=== PATIENT | female | born 2000 | race Two or more races ===

== ENCOUNTER 2025-05-30 04:55 | Observation (INO) | payer MEDICAID, SELFPAY ==
[2025-05-30] VITALS (10 sets, daily range): BP systolic 114–137; BP diastolic 70–91; PULSE 88–116; RESP 16–98; TEMP 36.9; O2SAT 97–100; BMI 29.7
== END 2025-05-30 08:00 | disposition home or self-care (01) ==
PROVIDERS: Admitting Provider Obstetrics & Gynecology; Visit Provider Obstetrics & Gynecology
DX: O47.9 False labor, unspecified (principal); O36.8190 Decreased fetal movements, unspecified trimester, not applicable or unspecified; Z3A.00 Weeks of gestation of pregnancy not specified
CPT/HCPCS: 59025; 59899

== ENCOUNTER 2025-05-30 16:38 | Inpatient (IN) | payer MEDICAID, SELFPAY ==
[2025-05-30] VITALS (44 sets, daily range): BP systolic 132–162; BP diastolic 77–104; PULSE 104–144; RESP 18–100; TEMP 36.9–37; O2SAT 92–100; BMI 29.6
[2025-05-30] MEDS: RINGERS LACTATED 1000 ML 1,000 ML 999 ML IV (22:15)
[2025-05-30 22:39] LABS: Basophils # (Auto) 0.1 Thou/mm3 (0.0-0.2); Basophils % (Auto) 0 % (0-2.5); Eosinophils # (Auto) 0.0 Thou/mm3 (0.0-0.5); Eosinophils % (Auto) 0 % (0-10); Hematocrit 33.2 % (36.0-46.0); Hemoglobin 10.7 g/dL (12.0-16.0); Immature Granulocytes Auto 0.21 Thou/mm3 (0.00-0.00); Lymphocytes # (Auto) 3.0 Thou/mm3 (1.0-4.8); Lymphocytes % (Auto) 14 % (10-50); Mean Corpuscular HGB Conc 32.2 g/dl (31.0-37.0); Mean Corpuscular Hemoglobin 25.8 pg (25.0-35.0); Mean Corpuscular Volume 80 fL (80-100); Monocytes # (Auto) 0.9 Thou/mm3 (0.0-0.8); Monocytes % (Auto) 4 % (0-12); Neutrophils # (Auto) 16.5 Thou/mm3 (1.8-7.7); Neutrophils % (Auto) 80 % (37-80); Nucleated Red Blood Cell # 0.00 Thou/mm3 (0.00-0.00); Nucleated Red Blood Cell % 0 /100 WBC (0); Platelet Count 301 Thou/mm3 (140-440); RDW Standard Deviation 44.5 fL (36.4-46.3); Red Blood Count 4.15 Miln/mm3 (4.00-5.20); White Blood Count 20.7 Thou/mm3 (3.6-11.0)
[2025-05-30 23:22] LABS: Syphilis Nonreactive (Nonreactive)
[2025-05-31] VITALS (199 sets, daily range): BP systolic 90–170; BP diastolic 49–85; PULSE 89–177; RESP 16–20; TEMP 36.7–38.2; O2SAT 82–100
--- NOTE | 2025-05-31 01:01 | PD.LDHP ---
Documentation for date of: 05/31/25 OB Labor/Induct. HPI History of Present Illness Chief complaint: contractions : 1 Para: 0 Term pregnancies: 0 pregnancies: 0 Living children: 0 History of Abortions: Spontaneous and Elective: 0 History of Vaginal deliveries: 0 History of sections: No History of : No GAVIN: 06/07/25 Gestational Age (weeks): 39 Gestational Age (days): 1 History of present illness: Patient presents for regular, painful ctx. No LOF. No vaginal bleeding. Normal movement. No fevers/chills. History of Present Dating criteria: LMP confirmed by 2nd trimester US Adequate Care: Yes Ultrasounds: normal mid trimester US Narrative: GERD e-coli bacteruria early , treated Labs Maternal Blood Type: A Pos Labs: Positive: Rubella Titre, Negative: RPR, Hepatitis B, HIV and Group Beta Strep and Unknown: Chlamydia, Gonorrhea, Herpes Type 1, Herpes Type 2 and Covid-19 Narrative: 1hr glucola 109 NIPT negative Review of Systems Review of Systems Narrative Review of Systems: Review of Systems Systems Reviewed: All systems reviewed, normal except as documented Constitutional Constitutional: Denies body ache(s), Denies chills, Denies fever(s) and Denies headache(s) ENT Ears, Nose, Mouth, and Throat: Denies headache(s) and Denies vertigo Cardiovascular Cardiovascular: Denies chest pain, Denies palpitations, Denies dyspnea and Denies syncope Respiratory Respiratory: Denies cough, Denies dyspnea Gastrointestinal Gastrointestinal: Denies nausea and Denies vomiting Neurologic Neurologic: Denies convulsions, Denies headache(s), Denies other visual disturbances, Denies syncope and Denies vertigo Past Medical History Family History OTHER FAMILY HX: non-contributory Surgical History SURGICAL: Negative Section Social History SOCIAL: No ETOH/illicit drug use/tobacco Past Medical History Comments PMH COMMENT: Benign Meds Home Medications and Allergies Home Medications ?Medication ?Instructions ?Recorded ?Confirmed ?Type omeprazole magnesium 20 mg 20 mg PO QDAY 05/30/25 05/30/25 History tablet,delayed release (Prilosec OTC) vitamin no.45-iron-FA 28 1 tab PO QDAY 05/30/25 05/30/25 History mg iron-1 mg chewable tablet Allergies Allergy/AdvReac Type Severity Reaction Status Date / Time No Known Allergies Allergy Verified 05/30/25 22:27 OB Exam Physical Exam Vital signs: Temp Pulse Resp BP Pulse Ox O2 Del Method 98.6 F 131 H 18 110/55 L 100 Room Air 05/30/25 22:41 05/31/25 00:48 05/30/25 22:41 05/31/25 00:48 05/31/25 00:58 05/30/25 22:41 Narrative: General: well developed, well nourished, no acute distress, conversant Cardiac: normal heart rate Lungs: breathing without distress Abdomen: soft, gravid, non-tender, no rebound or guarding Extremities: no pain with palpation of calves Detailed Labor and Delivery Exam Dilation (cm): 4 Effacement (%): 90 Cervix position: anterior station: -3 Consistency: soft Presentation: Vertex Membranes: intact Baseline heart rate: 130 monitor accelerations: 15x15 monitor decelerations: None computer terminal operator variability: Moderate (11-25) Contraction frequency (min): q4 OB Results Labs 06/01/25 07:05 Labs: Short CBC 05/30/25 Range/Units 22:30 WBC 20.7 H (3.6-11.0) Thou/mm3 Hgb 10.7 L (12.0-16.0) g/dL Hct 33.2 L (36.0-46.0) % Plt Count 301 (140-440) Thou/mm3 OB Assessment & Plan Assessment and Plan (1) Active labor at term: Status: Acute Assessment and plan: Beulah is a 25yo with SIUP at 39w0d presenting in active labor. Regular/painful contractions, SCE: 4/90/-3. Vitals wnl, benign exam. Reassuring assessment. PMhx/ significant for: -PNC with Dr. Diaz at [facility] -GERD -e-coli bacteruria early , treated Plan: -Admit to L&D -Establish IV, routine labs -CEFM -Clear liquid diet -Wash House Supervisor/consent re: -GBS status: negative -Anticipate -Safe to proceed (2) 39 weeks gestation of : Status: Acute
[2025-05-31] MEDS: TERBUTALINE SULF INJ 1 MG/ML VIAL 0.25 MG SC (01:28)
--- NOTE | 2025-05-31 03:28 | PD.LDPN ---
Documentation for date of: 05/31/25 OB Labor Progress Note Pelvic Exam Dilation (cm): 6 Effacement (%): 90 station: -2 Amniotic membrane status: Intact Contractions Monitor mode: External Contraction frequency: q4 Contraction intensity: Moderate Status status: Category l Assessment and Plan Comments: Patient had a run of late FHR decels just before I went back to OR with another patient, so terbutaline was given to temporarily stop ctx. This was effective. FHRT corrected to Cat I. Continue expectant management. Will AROM when appropriate.
--- NOTE | 2025-05-31 03:35 | PD.LDPN ---
Documentation for date of: 05/31/25 OB Labor Progress Note Pelvic Exam Dilation (cm): 6 Effacement (%): 90 station: -2 Amniotic membrane status: Intact Contractions Monitor mode: External Contraction frequency: q4 Contraction intensity: Moderate Status status: Category l Assessment and Plan Comments: Intrapartum Note Patient comfortable with epidural now. Normotensive, mild tachycardia, afebrile Cat I FHRT Ctx q5min SCE: 6/90/-2, AROM performed with light meconium noted Will continue expectant management CEFM Will continue to closely monitor Safe to proceed Jacquelyn Nathan MD
[2025-05-31] MEDS: ACETAMINOPHEN IVPB 1,000 MG/100 ML VIAL 250 MG IV (04:40)
--- NOTE | 2025-05-31 05:06 | PD.LDPN ---
Documentation for date of: 05/31/25 OB Labor Progress Note Pelvic Exam Dilation (cm): 6 Effacement (%): 90 station: -2 Amniotic membrane status: Intact Contractions Monitor mode: External Contraction frequency: q4-6 Contraction intensity: Moderate Status status: Category l Assessment and Plan Comments: Notified by RN that patient meets criteria for chorio now with temp 100.6F and maternal tachycardia. On presentation, WBC was 20.7. UA ordered, reflex to Ucx if indicated. She has no URI sx. Ampicillin 2g IV Q6hr and gentamicin 5mg/kg IV Q24hr ordered. Continue to closely monitor Safe to proceed Jacquelyn Nathan MD
[2025-05-31] MEDS: Ampicillin Inj 2,000 MG in SODIUM CHLORIDE 0.9% (POP) 100 ML 200 MG IV ×3 (05:50→17:48)
[2025-05-31 06:04] LABS: Bilirubin,Urine Negative (Negative); Blood,Urine Negative (Negative); Clarity,Urine Clear (Clear/Hazy); Collection Type, Urine Catheter; Color,Urine Colorless (Lt Yel-Yel); Culture Indicated,Urine Not Indicated; Glucose, Urine Negative (Negative); Ketones,Urine 2+ (Negative); Leukocyte Esterase,Urine Negative (Negative); Nitrite,Urine Negative (Negative); PH,Urine 6.0 (5.0-7.0); Protein,Urine Negative (Neg - Trace); RBC,Urine 3 /hpf (0-3); Specific Gravity,Urine 1.006 (1.001-1.035); Squamous Epithelial Cell,Urine 0 /hpf (0-5); Urobilinogen,Urine Negative mg/dL (0.0-1.0); WBC,Urine < 1 /hpf (0-5)
[2025-05-31] MEDS: MINERAL OIL 30 ML UDC TOP (10:26)
[2025-05-31] MEDS: OXYTOCIN in NS 20 units 20 UNIT/1,000 ML BAG 125 UNIT IV (10:30)
[2025-05-31] MEDS: LIDOCAINE HCL 1% 20 ML VIAL INFL (10:34)
[2025-05-31] MEDS: BENZO/LANO/ALOE (Dermoplast) 60 GM CAN 1 SPRAY TOP (10:42)
[2025-05-31 10:50] LABS: Chlamydia trachomatis PCR Negative (Not Detect); Neisseria Gonorrhoeae DNA PCR Negative (Not Detect); Trichomonas Negative (Negative)
[2025-05-31] MEDS: METHYLERGONOVINE INJ 0.2 MG/ML VIAL IM (11:00)
--- NOTE | 2025-05-31 11:02 | PD.LDDELS ---
Data ([place]) Data Hx Section: No : 1 Term: 0 : 0 Livin Abortions: Spontaneous & Theraputic: 0 Delivery Data ([place]) Labor Data Initiation of labor: Spontaneous Induction/Augmentation Agent: Artificial ROM ROM date: 05/31/25 ROM time: 03:36 Amniotic membrane rupture type: Artificial Amniotic fluid description: Light Meconium Delivery Data Onset of labor date: 05/30/25 Onset of labor time: 17:50 Complete dilation date: 05/31/25 Complete dilation time: 08:58 [place] delivery date: 05/31/25 [place] delivery time: 10:27 Placenta delivery date: 05/31/25 Placenta delivery time: 10:39 Stage 1 total time: Labor - Stage 1 Duration 15 hours and 8 minutes Delivered by: Venita Delivery nurse: Leland Neworn nurse: Arley Crutching Contractor at delivery: No Support person(s) at delivery: FOB, Maternal grandma of baby, Paternal grandma of baby Delivery Method Presentation: Vertex Anesthesia Type Anesthesia Type: Epidural Placenta Placenta delivery description: Spontaneous Cord blood sent to lab: Yes cord blood collection: Cord Blood Type EBL Estimated blood loss (ml): 150 Umbilical Cord cord description: 3 Vessels Additional Procedures Beulah is a 25yo [id number] s/p uncomplicated at 39&1wk after presenting in active labor, delivering at 1027 on 05/31/2025. On presentation, SCE was 4/90/-3. She progressed without pitocin augmentation to C/C/0 at which point she began pushing. Meconium had been noted at time of AROM. She received an epidural. During labor dx of chorioamnionitis was made based on presenting WBC count 20.7, maternal tachycardia and then eventual development of 100.6F temp. Started on amp/gent. With good maternal pushing efforts, 's head delivered OA and restituted ALICIA. Left anterior shoulder delivered easily followed by posterior shoulder and corpus. Infant had spontaneous cry and was vigorous. Apgars 8/9. placed on maternal abdomen where nose/mouth were suctioned and dried/stimulated. After approximately 3 minutes, cord was clamped x2 and cut by FOB. Cord blood collected for typing. With fundal massage and cord traction, placenta delivered spontaneously and intact with 3 vessel centrally inserted cord. Bimanual massage performed and IV pitocin given per protocol with fundus then firm at u-2cm and hemostasis noted. Inspection of perineum and vagina revealed bilateral labial lacerations and a 1st degree midline perineal laceration which were repaired in routine fashion with 4-0 and 3-0 vicryl, respectively, after anesthetizing with 1% lidocaine- total reapproximation and hemostasis achieved. Small trickle of blood, so sweep just within cervix/JOSELINE performed which retrieved a small amount of clot. 0.2mg IM methergine given with observed hemostasis after. All counts correct x2. Mom and were doing well when I left the room. Jacquelyn Nathan MD Complications Complications: chorioamnionitis [place] Data (Hill) [place] Data order: 1 [place]'s gender: Male Identification band number: [id number] weight (gms): 3210 g Weight (pounds): 7 lbs and 1.2 ozs [place] length: 53 cm 1 minute: 8 5 minutes: 9
[2025-05-31] MEDS: IBUPROFEN TAB 400 MG TABLET 800 MG PO (12:03)
[2025-05-31 16:54] LABS: Basophils # (Auto) 0.1 Thou/mm3 (0.0-0.2); Basophils % (Auto) 0 % (0-2.5); Eosinophils # (Auto) 0.0 Thou/mm3 (0.0-0.5); Eosinophils % (Auto) 0 % (0-10); Hematocrit 31.2 % (36.0-46.0); Hemoglobin 10.2 g/dL (12.0-16.0); Immature Granulocytes Auto 0.62 Thou/mm3 (0.00-0.00); Lymphocytes # (Auto) 2.2 Thou/mm3 (1.0-4.8); Lymphocytes % (Auto) 8 % (10-50); Mean Corpuscular HGB Conc 32.7 g/dl (31.0-37.0); Mean Corpuscular Hemoglobin 25.8 pg (25.0-35.0); Mean Corpuscular Volume 79 fL (80-100); Monocytes # (Auto) 1.6 Thou/mm3 (0.0-0.8); Monocytes % (Auto) 5 % (0-12); Neutrophils # (Auto) 25.0 Thou/mm3 (1.8-7.7); Neutrophils % (Auto) 85 % (37-80); Nucleated Red Blood Cell # 0.02 Thou/mm3 (0.00-0.00); Nucleated Red Blood Cell % 0 /100 WBC (0); Platelet Count 285 Thou/mm3 (140-440); RDW Standard Deviation 44.4 fL (36.4-46.3); Red Blood Count 3.95 Miln/mm3 (4.00-5.20); White Blood Count 29.5 Thou/mm3 (3.6-11.0)
[2025-05-31] MEDS: DOCUSATE SOD 100 MG CAPSULE PO (21:07)
[2025-06-01 00:10] VITALS: BP 110/71; PULSE 92; RESP 16; TEMP 36.8; O2SAT 98
[2025-06-01] MEDS: Ampicillin Inj 2,000 MG in SODIUM CHLORIDE 0.9% (POP) 100 ML 200 MG IV ×2 (00:16→05:54)
[2025-06-01 04:02] VITALS: BP 113/66; PULSE 91; RESP 18; TEMP 36.6; O2SAT 97
[2025-06-01 07:50] LABS: Basophils # (Auto) 0.1 Thou/mm3 (0.0-0.2); Basophils % (Auto) 0 % (0-2.5); Eosinophils # (Auto) 0.1 Thou/mm3 (0.0-0.5); Eosinophils % (Auto) 1 % (0-10); Hematocrit 26.2 % (36.0-46.0); Immature Granulocytes Auto 0.24 Thou/mm3 (0.00-0.00); Lymphocytes # (Auto) 4.1 Thou/mm3 (1.0-4.8); Lymphocytes % (Auto) 19 % (10-50); Mean Corpuscular HGB Conc 32.4 g/dl (31.0-37.0); Mean Corpuscular Hemoglobin 26.0 pg (25.0-35.0); Mean Corpuscular Volume 80 fL (80-100); Monocytes # (Auto) 1.3 Thou/mm3 (0.0-0.8); Monocytes % (Auto) 6 % (0-12); Neutrophils # (Auto) 15.4 Thou/mm3 (1.8-7.7); Neutrophils % (Auto) 73 % (37-80); Nucleated Red Blood Cell # 0.00 Thou/mm3 (0.00-0.00); Nucleated Red Blood Cell % 0 /100 WBC (0); Platelet Count 248 Thou/mm3 (140-440); RDW Standard Deviation 45.6 fL (36.4-46.3); Red Blood Count 3.27 Miln/mm3 (4.00-5.20); White Blood Count 21.3 Thou/mm3 (3.6-11.0)
[2025-06-01 07:57] VITALS: BP 114/70; PULSE 93; RESP 16; TEMP 36.8; O2SAT 98
[2025-06-01 08:01] LABS: Hemoglobin 8.5 g/dL (12.0-16.0)
--- NOTE | 2025-06-01 08:08 | ESDS_ITS ---
DS: Providers Provider Date of admission: 05/30/25 21:38 Primary care physician: Donnie Medina MD Admitting Provider: Jacquelyn Nathan MD Attending Provider on Admission: Jacquelyn Nathan MD Consults: 05/31/25 10:59 Referral Routine Comment: Attending Provider on DC: Jacquelyn Nathan MD Discharging Provider: Jacquelyn Nathan MD DS: Diagnosis Discharge Diagnosis (1) care and examination: Status: Acute (2) Chorioamnionitis, delivered, current hospitalization: Status: Acute (3) Vaginal delivery: Status: Acute (4) anemia: Status: Acute (5) Active labor at term: Status: Acute (6) 39 weeks gestation of : Status: Acute Problem List Completed Was Problem List Reviewed/Reconciled?: Yes Summary/Hosp Course Brief History: Patient presents for regular, painful ctx. No LOF. No vaginal bleeding. Normal movement. No fevers/chills. Beulah is a 25yo [id number] s/p uncomplicated at 39&1wk after presenting in active labor, delivering at 1027 on 05/31/2025. At time of presentation she had incidental elevated WBC count 20.7. She developed chorioamnionitis in labor which was treated with IV amp/gent x24hr after delivery. WBC count elevated to 29.5 and then came down to 21.3. She has no further subjective fevers/chills. Last elevated temp 100.8F at 0430 on 05/31 (>24hr ago). She has otherwise had an uncomplicated course, meeting all milestones and feels ready for discharge home. She is ambulating without lightheadedness, tolerating regular diet no n/v, spontaneously voiding without issue. She has no chest pain or shortness of breath. Minimal, appropriate discomfort. Vitals normal, benign exam. Hemodynamically stable with no evidence of infection. PP Hgb 8.5 from 10.7. No sx of anemia. Rx iron for anemia. Status at Discharge Functional status at discharge: independent ambulation Overall status at discharge: patient is back to baseline Time Spent with Patient Time attestation: Total time spent providing and/or coordinating discharge services: Exam Vital Signs Temp Pulse Resp BP Pulse Ox O2 Del Method 98.3 F 93 16 114/70 98 Room Air 06/01/25 07:57 06/01/25 07:57 06/01/25 07:57 06/01/25 07:57 06/01/25 07:57 06/01/25 07:57 Narrative Exam General: well developed, well nourished, no acute distress, conversant Cardiac: normal heart rate Lungs: breathing without distress Abdomen: soft, post-gravid, non-tender, no rebound or guarding, Fundus firm at u-3cm. Extremities: no pain with palpation of calves, trace edema of BLE Discharge Plan Plan Patient Disposition: HOME (Self Care) Patient condition on transfer: Stable Prescriptions/Referrals Prescriptions/Med Rec: New docusate sodium 100 mg Capsule 100 mg PO BID 10 Days Qty: 20 0RF ibuprofen 800 mg tablet 800 mg PO Q8H PRN (Reason: See Comments) 10 Days Qty: 20 0RF ferrous sulfate 325 mg (65 mg iron) tablet 325 mg PO QDAY Qty: 30 0RF No Action vitamin #45-iron-FA 28 mg iron- 1 mg tablet,chewable 1 tab PO QDAY omeprazole magnesium [Prilosec OTC] 20 mg tablet,delayed release (DR/EC) 20 mg PO QDAY Referrals: Donnie Medina MD [Primary Care Provider] - Patient/Caregiver Discharge Instructions Discharge Activity: activity as tolerated and other Other Discharge Activity Instructions:: vaginal rest and no heavy lifting more than 10 pounds for 6 weeks Other Discharge Diet Instructions: regular diet Education Materials: After a Vaginal Print Language: Swedish Activity Restrictions/Additional Instructions: follow up with Dr. Diaz in 2 to 4 weeks, call his office to schedule visit Stand Alone Forms: Gl[employer]y Award Info., Patient Portal Info Letter Discharge Order Discharge Orders: Discharge (Routine); Ordered 06/01/25 Ordered By: Jacquelyn Nathan Planned Discharge Date 06/01/25
[2025-06-01 12:00] VITALS: BP 114/70; PULSE 88; RESP 16; TEMP 37; O2SAT 98
== END 2025-06-01 15:46 | disposition home or self-care (01) | DRG 560 ==
LOC: S4SX 05-31 12:36 → S4NX 05-31 13:24
PROVIDERS: Admitting Provider Obstetrics & Gynecology; PCP Family Medicine; Visit Provider Obstetrics & Gynecology
DX: O41.1230 Chorioamnionitis, third trimester, not applicable or unspecified (principal); O76 Abnormality in fetal heart rate and rhythm complicating labor and delivery; O77.0 Labor and delivery complicated by meconium in amniotic fluid; Z37.0 Single live birth; Z3A.39 39 weeks gestation of pregnancy; O70.0 First degree perineal laceration during delivery; O90.81 Anemia of the puerperium; O99.62 Diseases of the digestive system complicating childbirth; K21.9 Gastro-esophageal reflux disease without esophagitis
CPT/HCPCS: 36415; 59025; 59409; 81001; 85025; 86780; 86850; 86900; 86901; 87491; 87591; 87661; 94762; J0131; J0290; J1580; J2210; J2590; J2795; J3010; J3105; J3490; J7050; J7120; A9270